=== PATIENT | male | born 1955 | race Caucasian/White ===

== ENCOUNTER → 2023-12-08 07:47 | Outpatient (REF) | payer OTHER, SELFPAY ==
[2023-12-08 09:39] LABS: % Basophils 0.5 % (0-2); % Eosinophils 3.5 % (0-6); % Immature Granulocytes 0.3 % (0-0.5); % Lymphocytes 32.1 % (20.5-51.1); % Monocytes 11.3 % (1.7-9.3); % Neutrophils 52.3 % (42.2-75.2); Absolute Eosinophils 0.2 10^3/uL (0-0.7); Absolute Monocytes 0.7 10^3/uL (0.1-0.6); Absolute Neutrophils 3.3 10^3/uL (1.4-6.5); Hematocrit 45.2 % (39.0-52.0); Hemoglobin 14.8 g/dL (13.0-18.0); Mean Corp Hgb Conc. 32.7 g/dL (33.0-37.0); Mean Corpuscular Hgb 29.2 pg (27.0-31.0); Mean Corpuscular Volume 89.2 fL (80.0-94.0); Nucleated Red Blood Cells % 0 % (-); Platelet Count 216 10^3/uL (130-400); Red Blood Cell Count 5.07 10^6/uL (4.70-6.10); Red Cell Dist. Width 13.6 % (11.5-14.5); White Blood Cell Count 6.3 10^3/uL (4.8-10.8)
[2023-12-08 10:44] LABS: ALT (SGPT) 37 U/L (0-50); AST (SGOT) 32 U/L (17-59); Albumin 4.6 g/dl (3.5-5.0); Alkaline Phosphatase 39 U/L (38-126); Blood Urea Nitrogen 27 mg/dl (9-20); Calcium 9.4 mg/dl (8.4-10.2); Carbon Dioxide 29 mmol/L (22-30); Chloride 101 mmol/L (98-107); Glucose 90 mg/dl (70-99); HDL Cholesterol 51 mg/dl; LDL Cholesterol, Calculated 54 mg/dl; Potassium 4.5 mmol/L (3.5-5.1); Sodium 142 mmol/L (135-145); Total Cholesterol 122 mg/dl (50-199); Total Protein 7.2 g/dl (6.3-8.2); Triglyceride 85 mg/dl (10-149); Very Low Density Lipoprotein 17 mg/dl (0-30); eGFR > 60.00
[2023-12-08 10:54] LABS: PSA, Total - Diagnostic 1.62 ng/ml (0.0-4.0); TSH Reflex To Free T4 1.89 uIU/ml (0.47-4.68)
== END ==
LOC: REG 07:47
PROVIDERS: ATTENDING PHYSICIAN Family Medicine; OTHER PHYSICIAN Specialist
DX: E78.5 Hyperlipidemia, unspecified (principal); Z13.29 Encounter for screening for other suspected endocrine disorder; R53.83 Other fatigue; Z13.1 Encounter for screening for diabetes mellitus; R68.82 Decreased libido; N40.1 Benign prostatic hyperplasia with lower urinary tract symptoms
CPT/HCPCS: 36415; 80053; 80061; 84153; 84403; 84443; 85025

== ENCOUNTER → 2024-06-18 09:36 | Outpatient (REF) | payer OTHER, SELFPAY ==
[2024-06-18 10:22] LABS: % Basophils 0.5 % (0-2); % Eosinophils 3.6 % (0-6); % Immature Granulocytes 0.2 % (0-0.5); % Lymphocytes 34.2 % (20.5-51.1); % Monocytes 9.9 % (1.7-9.3); % Neutrophils 51.6 % (42.2-75.2); Absolute Eosinophils 0.2 10^3/uL (0-0.7); Absolute Lymphocytes 2.2 10^3/uL (1.2-3.4); Absolute Monocytes 0.6 10^3/uL (0.1-0.6); Absolute Neutrophils 3.3 10^3/uL (1.4-6.5); Hematocrit 43.4 % (39.0-52.0); Hemoglobin 14.4 g/dL (13.0-18.0); Mean Corp Hgb Conc. 33.2 g/dL (33.0-37.0); Mean Corpuscular Volume 90.4 fL (80.0-94.0); Mean Platelet Volume 10.1 fL (7.4-10.4); Nucleated Red Blood Cells % 0 % (-); Platelet Count 199 10^3/uL (130-400); Red Cell Dist. Width 13.7 % (11.5-14.5); White Blood Cell Count 6.5 10^3/uL (4.8-10.8)
[2024-06-18 10:51] LABS: ALT (SGPT) 29 U/L (0-50); AST (SGOT) 23 U/L (17-59); Albumin 4.5 g/dl (3.5-5.0); Alkaline Phosphatase 44 U/L (38-126); Blood Urea Nitrogen 24 mg/dl (9-20); Calcium 9.2 mg/dl (8.4-10.2); Carbon Dioxide 29 mmol/L (22-30); Glucose 97 mg/dl (70-99); HDL Cholesterol 42 mg/dl; LDL Cholesterol, Calculated 50 mg/dl; Total Bilirubin 1.1 mg/dl (0.2-1.3); Total Cholesterol 108 mg/dl (50-199); Total Protein 6.9 g/dl (6.3-8.2); Triglyceride 80 mg/dl (10-149); Very Low Density Lipoprotein 16 mg/dl (0-30); eGFR > 60.00
[2024-06-18 10:57] LABS: Chloride 102 mmol/L (98-107); Potassium 4.2 mmol/L (3.5-5.1); Sodium 141 mmol/L (135-145)
== END ==
LOC: REG 09:36
PROVIDERS: ATTENDING PHYSICIAN Family Medicine
DX: E78.5 Hyperlipidemia, unspecified (principal); Z13.1 Encounter for screening for diabetes mellitus; R53.81 Other malaise
CPT/HCPCS: 36415; 80053; 80061; 85025

== ENCOUNTER 2024-10-04 13:15 | Emergency (ER) | payer OTHER, SELFPAY ==
[2024-10-04 13:21] VITALS: BP 128/75
[2024-10-04 13:58] LABS: Hematocrit 42.0 % (39.0-52.0); Hemoglobin 14.4 g/dL (13.0-18.0); Mean Corp Hgb Conc. 34.3 g/dL (33.0-37.0); Mean Corpuscular Volume 88.8 fL (80.0-94.0); Nucleated Red Blood Cells % 0 % (-); Platelet Count 196 10^3/uL (130-400); Red Cell Dist. Width 13.4 % (11.5-14.5)
[2024-10-04 14:16] LABS: ALT (SGPT) 28 U/L (0-50); AST (SGOT) 26 U/L (17-59); Albumin 4.5 g/dl (3.5-5.0); Alkaline Phosphatase 43 U/L (38-126); Blood Urea Nitrogen 27 mg/dl (9-20); Calcium 9.5 mg/dl (8.4-10.2); Carbon Dioxide 25 mmol/L (22-30); Chloride 106 mmol/L (98-107); Glucose 105 mg/dl (70-99); Potassium 4.7 mmol/L (3.5-5.1); Sodium 139 mmol/L (135-145); Total Protein 6.9 g/dl (6.3-8.2); eGFR > 60.00
[2024-10-04 14:25] LABS: Troponin I < 0.012 ng/ml
[2024-10-04 15:00] VITALS: BP 131/76
[2024-10-04 15:02] VITALS: BP 131/76
[2024-10-04 15:04] VITALS: BMI 23.1
[2024-10-04 16:18] VITALS: BP 131/81
--- NOTE | 2024-10-04 16:50 | ED.GENMED ---
History of Present Illness
General
Chief Complaint: Cardiac Symptoms
Source: patient and spouse
Exam Limitations: none
Time Seen by Provider: 10/04/24 15:25
Nursing documentation reviewed up to this point in time: agreed with
History of Present Illness
History of Present Illness:
69 yr male presents to the ED for evaluation for evaluation. Patient reports that last night around 12 AM to 2 AM he noticed a fluttering in his chest. He had very minimal discomfort denies any actual pain in the neck shortness of breath.
Resolved on its own. This morning again around 10 AM he had similar symptoms which is what prompted him to come to the ER. He also has mild discomfort. He reports he had a normal cath done in 2021.
Currently patient is asymptomatic.
Past History
Past History
ED Past Medical History: None, Cancer (Skin), GERD and Psychiatric (Depression)
ED Past Surgical History: Orthopedic and Other
Social History
Tobacco: Non-smoker
Personal:
Living: with family
Employment: Employed
Phy Exam
General Physical Exam
General Presentation: no apparent distress
General age: appears stated age
General Skin: warm and dry
General Habitus: normal
General Mental: alert
General Hydration: appears well hydrated
Cardiovascular Exam
Cardiovascular Exam: regular rate/rhythm, no murmur and normal peripheral pulses
Pulmonary Exam
Pulmonary Exam: lungs clear and no respiratory distress
Neurological Exam
Neurological Exam: alert and oriented x3
Musculoskeletal Exam
Musculoskeletal Exam: full ROM
Skin Exam
Skin Exam: normal color and warm/dry
Psychiatric Exam
Psychiatric Exam: normal mood/affect
Course
Orders/Labs/Results
Orders:
Orders
10/04/24 13:16
EKG [Electrocardiogram (*1)] Urgent
Reason for Study: Palpitations
EKG- Treatment ONCE
10/04/24 13:30
Complete Blood Count/With Diff Urgent
Comprehensive Metabolic Panel Urgent
TSH Reflex To Free T4 Urgent
Troponin I Urgent
10/04/24 16:31
Electrocardiogram (*1) Urgent
Reason for Study: Chest Pain
EKG- Treatment ONCE
10/04/24 16:46
Troponin I Urgent
Abnormal Lab Results
10/04/24
13:30
Absolute Monos (auto) 0.8 H 10^3/uL
(0.1-0.6)
Monocytes % 10.6 H %
(1.7-9.3)
BUN 27 H mg/dl
(9-20)
Glucose 105 H mg/dl
(70-99)
10/04/24 13:30
10/04/24 13:30
Vital Signs
Initial and Last Documented VS:
Initial Vital Signs
Temp Pulse Resp BP Pulse Ox
98.5 F 80 16 128/75 98
10/04/24 13:21 10/04/24 13:21 10/04/24 13:21 10/04/24 13:21 10/04/24 13:21
Last Documented Vital Signs
Temp Pulse Resp BP Pulse Ox
98.0 F 54 18 138/80 97
10/04/24 15:02 10/04/24 17:30 10/04/24 15:02 10/04/24 17:00 10/04/24 17:30
MDM/Problems Addressed
Differential Diagnosis Includes:
Not limited to arrhythmia, dehydration electrolyte abnormality
MDM/Problems Addressed:
As documented patient is a 69-year-old male who presents with fluttering sensation with mild chest discomfort. This occurred last night and again this morning. Who presents in no acute distress on the monitor I did see occasional PVCs however
normal sinus rhythm on EKG. His labs unremarkable first cardiac troponin negative. His TSH is normal. He has remained asymptomatic here in the ER.
He has had occasional PVCs .electrolytes are normal .
Will check a second troponin plan to discharge home with cardiology follow-up. He has seen Dr. Brown in the past and had a cardiac cath. I did review this cardiac cath from 2019 which showed nonobstructive coronary artery disease with
preserved left ventricular systolic function. He will likely need Holter monitor. Discussed for him to rest over the weekend no exertional activities until seen in by cardiology however he is very well-appearing in no acute distress. Second EKG
unremarkable
*Pulse Oximetry
SaO2: 98
Oxygen Mode of Delivery: Room air
Patient hypoxic: no
*EKG
Interpreted by ED Provider?: Yes
Interpretation: normal
Heart Rate: 65
Rate: normal
Rhythm: sinus
Ischemia: other (repeat ekg unchanged )
*Critical Care Note
Total Time (30-74mins, 75-104mins- exclusive of procedures): Not Applicable
ED Attending Note
-
Portions of this chart may have been created with voice recognition software.� Occasional wrong word or��sound alike� substitutions may have occurred due to the inherent limitations of voice recognition software.
Discharge Plan
Departure
Patient Disposition: Home (Routine Discharge)
Date of Disposition: 10/04/24
Time of Disposition: 17:33
Patient with high blood pressure during this ER visit?: Yes
Condition: Fair
Covid-19: Not Applicable
Discharge Problem:
Heart palpitations, Chest pain, PVC (premature ventricular contraction)
Instructions: Ventricular premature beats, Palpitations - ED (DC), Chest Pain DCA Follow Up, BLOOD PRESSURE
Prescriptions:
No Action
bupropion HCl [Wellbutrin] 100 MG tablet
100 mg PO DAILY
sertraline 50 MG tablet
100 mg PO DAILY
ibuprofen [Advil] 100 MG tablet
200 mg PO DAILYPRN PRN (Reason: pain) Qty: 0 0RF
Referrals:
Salo Sullivan Jr., DO [Family Provider, Internal Medicine]
Jose Brown MD [Active, Cardiology]
Activity Restrictions/Additional Instructions:
As discussed be sure to stay well-hydrated and rest over the weekend. You will be placed on the chest pain hotline. You should receive a phone call from the office in the next 1-2 business days if you do not please give the office a call to
schedule an appointment. Return however if any worsening of symptoms of increased pain palpitation shortness of breath, dizziness or any further concerns.
Interventions
Interventions:
*Risk Screen - Suicide Last Done: 10/04/24 15:04
*General Assessment Last Done: 10/04/24 15:04
*Neglect/Abuse Screening Last Done: 10/04/24 15:04
*ED- Fall Risk Assessment Last Done: 10/04/24 15:04
*ED COVID-19 Vaccine History Last Done: 10/04/24 15:04
*Nursing Disposition Last Done: 10/04/24 17:45
ED- Cardiac Assessment Last Done: 10/04/24 15:06
ED- Pulmonary Assessment Last Done: 10/04/24 15:06
Discharge Date and Time
Discharge Date/Time: 10/04/24 17:46
Print Language: HEBREW
[2024-10-04 17:00] VITALS: BP 138/80
[2024-10-04 17:26] LABS: Troponin I < 0.012 ng/ml
== END 2024-10-04 17:46 | disposition home or self-care (01) ==
LOC: EMR 13:15
PROVIDERS: Emergency Medicine; Nurse Practitioner; EMERGENCY PHYSICIAN Emergency Medicine; FAMILY PHYSICIAN Family Medicine
DX: R00.2 Palpitations (principal); R07.9 Chest pain, unspecified; I49.3 Ventricular premature depolarization; R03.0 Elevated blood-pressure reading, without diagnosis of hypertension; I25.10 Atherosclerotic heart disease of native coronary artery without angina pectoris; K21.9 Gastro-esophageal reflux disease without esophagitis; F32.A Depression, unspecified; Z85.828 Personal history of other malignant neoplasm of skin
CPT/HCPCS: 99284; 80053; 84443; 84484; 85025; 93005

== ENCOUNTER 2024-10-15 18:49 | Emergency (ER) | payer OTHER, SELFPAY ==
[2024-10-15 19:21] VITALS: BP 120/70
[2024-10-15 19:46] LABS: Hematocrit 41.9 % (39.0-52.0); Hemoglobin 14.0 g/dL (13.0-18.0); Mean Corp Hgb Conc. 33.4 g/dL (33.0-37.0); Mean Corpuscular Volume 88.2 fL (80.0-94.0); Nucleated Red Blood Cells % 0 % (-); Platelet Count 201 10^3/uL (130-400); Red Cell Dist. Width 13.2 % (11.5-14.5)
[2024-10-15 20:10] LABS: ALT (SGPT) 28 U/L (0-50); AST (SGOT) 24 U/L (17-59); Albumin 4.5 g/dl (3.5-5.0); Alkaline Phosphatase 50 U/L (38-126); Blood Urea Nitrogen 29 mg/dl (9-20); Calcium 9.3 mg/dl (8.4-10.2); Carbon Dioxide 27 mmol/L (22-30); Chloride 104 mmol/L (98-107); Glucose 144 mg/dl (70-99); Potassium 4.0 mmol/L (3.5-5.1); Sodium 136 mmol/L (135-145); Total Protein 6.9 g/dl (6.3-8.2); eGFR > 60.00
[2024-10-15 20:25] LABS: Troponin I < 0.012 ng/ml
== END 2024-10-15 21:05 | disposition left against medical advice (07) ==
LOC: EMR 18:49
PROVIDERS: Emergency Medicine; EMERGENCY PHYSICIAN Emergency Medicine
DX: R07.9 Chest pain, unspecified (principal); Z53.21 Procedure and treatment not carried out due to patient leaving prior to being seen by health care provider
CPT/HCPCS: 80053; 84484; 85025; 93005

== ENCOUNTER → 2024-10-30 16:01 | Outpatient (REF) | payer OTHER, SELFPAY | LOC: HWRCS 16:01 | PROVIDERS: ATTENDING PHYSICIAN Internal Medicine Cardiovascular Disease; FAMILY PHYSICIAN Family Medicine | DX: R00.2 Palpitations (principal) | CPT/HCPCS: 93306 ==

== ENCOUNTER → 2024-12-13 09:23 | Outpatient (REF) | payer OTHER, SELFPAY ==
[2024-12-13 10:46] LABS: Hematocrit 46.9 % (39.0-52.0); Hemoglobin 15.3 g/dL (13.0-18.0); Mean Corp Hgb Conc. 32.6 g/dL (33.0-37.0); Mean Corpuscular Volume 94.6 fL (80.0-94.0); Nucleated Red Blood Cells % 0 % (-); Platelet Count 216 10^3/uL (130-400); Red Cell Dist. Width 13.5 % (11.5-14.5)
[2024-12-13 11:13] LABS: ALT (SGPT) 33 U/L (0-50); AST (SGOT) 26 U/L (17-59); Albumin 4.6 g/dl (3.5-5.0); Alkaline Phosphatase 44 U/L (38-126); Blood Urea Nitrogen 29 mg/dl (9-20); Calcium 9.4 mg/dl (8.4-10.2); Carbon Dioxide 29 mmol/L (22-30); Chloride 100 mmol/L (98-107); Glucose 90 mg/dl (70-99); HDL Cholesterol 49 mg/dl; Potassium 4.5 mmol/L (3.5-5.1); Sodium 136 mmol/L (135-145); Total Protein 7.5 g/dl (6.3-8.2); Very Low Density Lipoprotein 14 mg/dl (0-30); eGFR > 60.00
[2024-12-13 11:23] LABS: LDL Cholesterol, Calculated 54 mg/dl
== END ==
LOC: REG 09:23
PROVIDERS: ATTENDING PHYSICIAN Family Medicine
DX: Z13.1 Encounter for screening for diabetes mellitus (principal); E78.5 Hyperlipidemia, unspecified; R53.83 Other fatigue; Z13.29 Encounter for screening for other suspected endocrine disorder
CPT/HCPCS: 36415; 80053; 80061; 84443; 85025

== ENCOUNTER 2025-01-02 11:28 | Emergency (ER) | payer OTHER, SELFPAY ==
[2025-01-02 11:31] VITALS: BP 139/76
[2025-01-02 11:45] VITALS: BP 136/68
[2025-01-02 12:00] VITALS: BP 127/74
--- NOTE | 2025-01-02 12:00 | ED.GENMED ---
History of Present Illness
General
Chief Complaint: Dizziness
Source: patient
Exam Limitations: none
Time Seen by Provider: 01/02/25 11:44
History of Present Illness
History of Present Illness:
See MDM
Past History
Past History
ED Past Medical History: None, Cancer (Skin), GERD and Psychiatric (Depression)
ED Past Surgical History: Orthopedic and Other
Social History
Tobacco: Non-smoker
Personal:
Living: with family
Employment: Employed
Phy Exam
Physical Exam
Physical Exam:
See MDM
Course
Orders/Labs/Results
Orders:
Orders
01/02/25 11:58
Meclizine [Antivert] 25 mg PO NOW STA
01/02/25 11:59
CT Head W/o Iv Contrast Urgent
Comment:
Reason For Exam: headache, ataxia
01/02/25 12:00
Electrocardiogram (*1) Urgent
Reason for Study: Vertigo / Dizzy
EKG- Treatment ONCE
01/02/25 12:13
Complete Blood Count/With Diff Urgent
Comprehensive Metabolic Panel Urgent
Abnormal Lab Results
01/02/25 01/02/25
12:13 13:54
WBC 13.9 H 10^3/uL
(4.8-10.8)
Abs Immat Gran (auto) 0.1 H 10^3/uL
(0-0.05)
Absolute Neuts (auto) 12.1 H 10^3/uL
(1.4-6.5)
Absolute Lymphs (auto) 1.0 L 10^3/uL
(1.2-3.4)
Neutrophils % 87.3 H %
(42.2-75.2)
Lymphocytes % 7.0 L %
(20.5-51.1)
BUN 24 H mg/dl
(9-20)
Glucose 139 H mg/dl
(70-99)
POC Glucose 106 H mg/dl
(70-99)
01/02/25 12:13
01/02/25 12:13
Vital Signs
Initial and Last Documented VS:
Initial Vital Signs
Temp Pulse Resp BP Pulse Ox
97.8 F 64 18 139/76 98
01/02/25 11:31 01/02/25 11:31 01/02/25 11:31 01/02/25 11:31 01/02/25 11:31
Last Documented Vital Signs
Temp Pulse Resp BP Pulse Ox
97.8 F 64 18 127/76 97
01/02/25 11:31 01/02/25 13:00 01/02/25 13:00 01/02/25 13:00 01/02/25 13:00
MDM/Problems Addressed
Differential Diagnosis Includes:
Note:
CHIEF COMPLAINT(S)
Dizziness and nausea.
HISTORY OF PRESENT ILLNESS
The patient is a 69-year-old male with a recent history of dizziness and nausea. The symptoms began this morning while he was at home. He described the dizziness as requiring him to steady himself while walking and noted subsequent nausea. He had a
similar episode last night at the gym, where he suddenly needed to stabilize himself while watching TV during exercise. The patient also reports an episode of dizziness about one and a half to two weeks ago, which was suspected to be food poisoning.
This resolved after episodes of vomiting. He feels fine while seated, but experiences unsteadiness while walking, alicia to being on a moving vehicle, and describes the room as spinning, suggesting vertigo. The patient has a history of infrequent
vertigo episodes that resolve spontaneously. He denies current vomiting and experiences diplopia when focusing on close objects. The patient mentions prior evaluation by an Ear, Nose, and Throat specialist, which was unremarkable. He has had an
encounter with a program clinician due to premature ventricular contractions (PVCs) but otherwise has no significant past medical history including hypertension. The patient is currently improving in symptoms.
PHYSICAL EXAM
General: Alert, no acute distress.
Skin: Warm, dry.
Head: Normocephalic, atraumatic
Neck: Appears supple, trachea midline.
Eyes, Ears, Nose, Mouth, and Throat: Moist mucous membranes. Pupils equal reactive. EOMI. No field deficit noted
Cardiovascular: No signs of cyanosis. Regular rate and rhythm
Respiratory: Respirations are non-labored.
Abdomen: Non-distended
Musculoskeletal: No deformities
Neurological: No focal neurological deficit observed. Normal finger-nose bilaterally. Negative Romberg
Psychiatric: Cooperative, appropriate mood and affect.
PLAN
1. Administration of meclizine for symptom control of vertigo.
2. Blood work to evaluate cardiac function.
3. Non-contrast computerized tomography (CT) scan of the head to rule out any acute intracranial pathology, such as bleeding or significant mass lesions, particularly in the cerebellum.
4. The possibility of an outpatient MRI was discussed for further evaluation if symptoms persist or escalate.
5. The patient is advised to follow up with his primary care physician or neurologist for a potential MRI if symptoms do not improve.
DIFFERENTIAL DIAGNOSIS
The Differential Diagnosis includes, in no particular order and is not limited to:
- Benign Paroxysmal Positional Vertigo (BPPV)
- Vestibular Neuritis
- Labyrinthitis
- Transient Ischemic Attack (TIA)
- Cerebellar Infarct
- Menieres Disease
- Acoustic Neuroma
- Dehydration-related Dizziness
- Orthostatic Hypotension
- Migraine-associated Vertigo
SUMMARY OF ENCOUNTER
The 69-year-old male presented with dizziness and nausea, with a history of similar past episodes. The differential includes vertiginous disorders and potential neurologic concerns such as TIA or cerebellar pathology. Immediate management consists
of symptom control with meclizine, head imaging, and blood work to ensure no acute intracranial or cardiac pathology. Outpatient MRI and follow-up for persistent symptoms were recommended.
DISPOSITION
Discharge with outpatient follow-up planned.
MEDICAL DECISION MAKING
- Number and Complexity of Problems Addressed: Consideration of potential benign paroxysmal positional vertigo or central causes such as cerebellar events or TIA. Chronic conditions were not significantly affecting care.
- Data:
- Category 1: Blood work and CT scan of the head ordered.
- Category 3: Discussion of management plan and need for possible outpatient follow-up imaging.
- Risk: Consideration of central nervous system imaging, specifically CT, due to potential risk of stroke or cerebellar involvement. The decision for outpatient management underlines the assessment of stable vital signs and improvement in symptoms.
DIAGNOSIS
- Peripheral Vertigo, Unspecified (H81.9)
- Possible Transient Ischemic Attack (G45.9).
SUMMARY OF ENCOUNTER
The patient, a 69-year-old male, presented to the emergency department with intermittent dizziness, nausea, and diplopia. The symptoms were initially concerning for a neurological event but began resolving with administration of meclizine. The
patients blood work showed nonspecific leukocytosis, but was otherwise unremarkable. Given the patients improving condition and clinical findings inconsistent with a stroke, an outpatient follow-up with his primary care physician was advised to
re-evaluate blood work and consider the necessity of an outpatient MRI.
DISPOSITION
Discharge.
ASSESSMENT
Symptoms consistent with peripheral vertigo; resolved dizziness and diplopia with treatment.
EMERGENCY TREATMENTS ADMINISTERED
Meclizine was administered for vertigo symptoms.
PLAN
Discharge with instructions to follow-up with primary care physician to review blood work findings and discuss the need for an outpatient MRI.
INDEPENDENT REVIEW OF LABS AND INTERPRETATION OF TESTS
My independent review of the blood work indicates nonspecific leukocytosis, otherwise within normal limits.
MEDICATION RECONCILIATION
A dose of meclizine was administered in the emergency department for symptom relief.
MEDICAL DECISION MAKING
- Number and Complexity of Problems Addressed: Chronic conditions affecting care include a history of peripheral vertigo. Differential Diagnosis includes Benign Paroxysmal Positional Vertigo (BPPV), Vestibular Neuritis, Labyrinthitis, Transient
Ischemic Attack (TIA), Cerebellar Infarct, Menieres Disease, Acoustic Neuroma, Dehydration-related Dizziness, Orthostatic Hypotension, and Migraine-associated Vertigo.
- Data:
Category 1: Blood work ordered and reviewed, with findings of nonspecific leukocytosis.
- Risk: Consideration of Admission/Observation: Escalation of care including admission/observation was considered given the complexity and risk of the patients presenting complaint. However, ultimately I feel the patient is safe for outpatient
management with close follow-up. Reasoning: Work-up reassuring, does not reveal any acute life/organ threatening processes, patients symptoms well controlled upon reevaluation, reexamination is reassuring, vitals are stable, patient agreeable with
discharge, reliable for follow-up.
DIAGNOSIS
Peripheral Vertigo, Unspecified (H81.9). Possible Transient Ischemic Attack (G45.9).
*Pulse Oximetry
SaO2: 99
Oxygen Mode of Delivery: Room air
Patient hypoxic: no
*Critical Care Note
Total Time (30-74mins, 75-104mins- exclusive of procedures): Not Applicable
ED Attending Note
-
Portions of this chart may have been created with voice recognition software.� Occasional wrong word or��sound alike� substitutions may have occurred due to the inherent limitations of voice recognition software.
Discharge Plan
Departure
Patient Disposition: Home (Routine Discharge)
Date of Disposition: 01/02/25
Time of Disposition: 14:50
Patient with high blood pressure during this ER visit?: No
Discharge Problem:
Dizziness
Instructions: Dizziness
Prescriptions:
New
meclizine 25 mg tablet
25 mg PO BID PRN (Reason: dizziness) Qty: 20 0RF
No Action
bupropion HCl [Wellbutrin] 100 MG tablet
100 mg PO DAILY
sertraline 50 MG tablet
100 mg PO DAILY
ibuprofen [Advil] 100 MG tablet
200 mg PO DAILYPRN PRN (Reason: pain) Qty: 0 0RF
Referrals:
Salo Sullivan Jr., DO [Family Provider, Internal Medicine]
Activity Restrictions/Additional Instructions:
Please return for any worsening symptoms.
You may return at any time if you have further concerns.
Please follow up with your doctor at the first available appointment, preferably this week. Please discuss your symptoms and the relevance of outpatient brain MRI.
Thank you for choosing [facility].
Interventions
Interventions:
*Risk Screen - Suicide Last Done: 01/02/25 11:31
*General Assessment Last Done: 01/02/25 11:31
*Neglect/Abuse Screening Last Done: 01/02/25 11:31
ED- Neurological Assessment Last Done: 01/02/25 11:45
ED- Cardiac Assessment Last Done: 01/02/25 11:45
Discharge Date and Time
Print Language: [id number]
[2025-01-02] MEDS: ANTIVERT 25 MG PO (12:15)
[2025-01-02 12:23] LABS: Hematocrit 43.6 % (39.0-52.0); Hemoglobin 14.4 g/dL (13.0-18.0); Mean Corp Hgb Conc. 33.0 g/dL (33.0-37.0); Mean Corpuscular Volume 89.7 fL (80.0-94.0); Nucleated Red Blood Cells % 0 % (-); Platelet Count 197 10^3/uL (130-400); Red Cell Dist. Width 13.6 % (11.5-14.5)
[2025-01-02 12:44] LABS: ALT (SGPT) 35 U/L (0-50); AST (SGOT) 31 U/L (17-59); Albumin 4.4 g/dl (3.5-5.0); Alkaline Phosphatase 39 U/L (38-126); Blood Urea Nitrogen 24 mg/dl (9-20); Calcium 9.2 mg/dl (8.4-10.2); Carbon Dioxide 30 mmol/L (22-30); Chloride 102 mmol/L (98-107); Glucose 139 mg/dl (70-99); Potassium 4.5 mmol/L (3.5-5.1); Sodium 135 mmol/L (135-145); Total Protein 7.2 g/dl (6.3-8.2); eGFR > 60.00
[2025-01-02 13:00] VITALS: BP 127/76
[2025-01-02 13:55] LABS: Glucose - Point of Care 106 mg/dl (70-99)
[2025-01-02 14:49] VITALS: BP 127/71
== END 2025-01-02 15:06 | disposition home or self-care (01) ==
LOC: EMR 11:28
PROVIDERS: EMERGENCY PHYSICIAN Student in an Organized Health Care Education/Training Program; FAMILY PHYSICIAN Family Medicine
DX: R42 Dizziness and giddiness (principal); K21.9 Gastro-esophageal reflux disease without esophagitis; F32.A Depression, unspecified; Z85.828 Personal history of other malignant neoplasm of skin
CPT/HCPCS: 99284; 70450; 80053; 82962; 85025; 93005

== ENCOUNTER → 2025-02-12 08:35 | Outpatient (REF) | payer OTHER, SELFPAY ==
[2025-02-12 10:47] LABS: PSA, Total - Diagnostic 1.62 ng/ml (0.0-4.0)
== END ==
LOC: REG 08:35
PROVIDERS: ATTENDING PHYSICIAN Specialist; FAMILY PHYSICIAN Family Medicine
DX: N40.1 Benign prostatic hyperplasia with lower urinary tract symptoms (principal)
CPT/HCPCS: 36415; 84153